=== PATIENT | female | born 1980 | race Caucasian/White ===

== ENCOUNTER 2016-11-28 18:46 | Emergency (ER) | payer SELFPAY ==
--- NOTE | 2016-12-08 07:22 | ER ---
ADMIT: 11/28/2016 RM/LOC: ER [facility] MR#: [id number] [facility] [address] [place], [place] [address] MARTIN SILVA [address] [place] [address] Emergency Room Report SEX: F AGE: 36 : 1980 DATE: 11/28/2016 ADDENDUM: A 36-year-old female, comes in with cough, congestion, chest burning, feeling short of breath going on for couple days now. She has had a temp to 101.5. She does smoke about half to 1 pack a day, denies any asthma or COPD. She does have some kids at home who have similar symptoms with cold/URI symptoms. She was definitely wheezing here, and she had significant improvement after she received a DuoNeb. She was also given a dose of prednisone here. We did check for influenza and that was negative. She did get a small left-sided epistaxis when the swab was done, but with Afrin and direct pressure that resolved. The patient is feeling much improved at time of discharge after her DuoNeb, and she is sent home with an albuterol inhaler with spacer and prednisone b.i.d. for 4 days. She is to follow up with Dr. Méndez if symptoms do not improve. DIAGNOSES: 1. Viral infection. 2. Reactive airway disease. Ed Rosa MD/ mark JOB #: [id number] CC: Ed Rosa MD, Attending Physician Ede Padilla MD, Family Physician
== END 2016-11-28 20:17 | disposition home or self-care (01) ==
LOC: ER 18:46
DX: B34.9 Viral infection, unspecified (principal); F17.200 Nicotine dependence, unspecified, uncomplicated

== ENCOUNTER 2016-12-12 21:24 | Emergency (ER) | payer SELFPAY | END 2016-12-12 22:28 | disposition home or self-care (01) | DX: K02.9 Dental caries, unspecified (principal); F17.210 Nicotine dependence, cigarettes, uncomplicated ==

== ENCOUNTER 2017-01-19 14:17 | Emergency (ER) | payer BC ==
--- NOTE | 2017-01-23 14:46 | ER ---
ADMIT: 01/19/2017 RM/LOC: ER [facility] MR#: [id number] [address] [address] MARTIN HOBBS [address] [place] [address] Emergency Room Report SEX: F AGE: 36 : 1980 DATE: 01/19/2017 ADDENDUM: CHIEF COMPLAINT: Red third finger of her left hand. HISTORY OF PRESENT ILLNESS: This is a 36-year-old female that she said she works at [employer]. Last night when she came home from work, she thought there was possibly a foreign body in her finger, so she squeezed on it trying to see if she could get anything out, but nothing ever came out. Then she developed a blood blister and now her whole finger is red and swollen. I am placing her on Keflex and Bactrim for 7 days. Told her not to squeeze in that area at all any more, continue to do warm soaks. Follow up her primary care physician if worsens. CLINICAL IMPRESSION: Cellulitis to the left 3rd finger. ZENY Smith / Speedy Medina MD / mark JOB #: [id number] CC: Speedy Medina MD, Attending Physician Claude Harrington MD, Family Physician
== END 2017-01-19 15:00 | disposition home or self-care (01) ==
LOC: ER 14:17
DX: L03.012 Cellulitis of left finger (principal); Z98.890 Other specified postprocedural states; X58.XXXA Exposure to other specified factors, initial encounter; Y92.69 Other specified industrial and construction area as the place of occurrence of the external cause

== ENCOUNTER 2017-05-12 12:06 | Emergency (ER) | payer SELFPAY ==
--- NOTE | 2017-05-13 19:26 | ER ---
ADMIT: 05/12/2017 RM/LOC: ER [facility] MR#: [id number] [id number] [place], [place] [address] MARTIN HOBBS [address] [place] [address] Emergency Room Report SEX: F AGE: 36 : 1980 DATE: 05/12/2017 ADDENDUM: CHIEF COMPLAINT: Swelling of the left jaw. HISTORY OF PRESENT ILLNESS: This is a 36-year-old female, who has dental pain, but then she also has some acne on her chin that could be causing a little bit of swelling. I did a dental block here, it helped relieve some of the pain. I am sending her home with penicillin VK for infection. Have her follow up with a dentist as soon as possible. CLINICAL IMPRESSION: 1. Dental abscess. 2. Chin abscess. ZENY Smith / Bobby Chacon MD / mark JOB #: [id number] CC: Bobby Chacon MD, Attending Physician Don Méndez MD, Family Physician
== END 2017-05-12 13:41 | disposition home or self-care (01) ==
LOC: ER 12:06
PROC: 3E0T3CZ (ICD-10-PCS; principal; 2017-05-12)
DX: K04.7 Periapical abscess without sinus (principal); L02.01 Cutaneous abscess of face; F17.210 Nicotine dependence, cigarettes, uncomplicated